=== PATIENT | male | born 1980 | race Caucasian/White ===

== ENCOUNTER → 2017-07-26 | Outpatient (CLI) | payer OTHER ==
[2017-07-26 13:17] LABS: HCT 50.1 % (39.0-53.0); HGB 16.7 gm/dL (13.0-17.5); MCH 28.2 pg (25.0-35.0); MCHC 33.2 g/dL (31.0-37.0); MCV 84.8 fL (80.0-100.0); Mean Platelet Volume 6.9; Platelet Count 348 k/uL (150-450); RBC 5.91 m/uL (4.30-5.90); RDW 12.4 % (11.5-15.5); WBC 11.4 k/uL (3.8-10.6)
[2017-07-26 14:44] LABS: Eosinophils # (M) 2.51 k/uL (0-0.7); Lymphocytes # (M) 4.22 k/uL (1.0-4.8); Monocytes # (M) 0.23 k/uL (0-1.0); Neutrophils # (M) 4.45 k/uL (1.3-7.7); Neutrophils % (M) 39 %; Nucleated Red Blood Cells 0 /100 WBC (0-0); Total Cells Counted 100
== END | disposition home or self-care (01) ==
LOC: LABPAT 11:53
PROVIDERS: ATTEND Surgery
DX: Z01.812 Encounter for preprocedural laboratory examination (principal); D64.9 Anemia, unspecified; F17.200 Nicotine dependence, unspecified, uncomplicated; K43.0 Incisional hernia with obstruction, without gangrene
CPT/HCPCS: 36415; 85025

== ENCOUNTER 2017-09-25 17:55 | Emergency (ER) | payer OTHER ==
[2017-09-25 18:21] VITALS: BP 112/76; PULSE 64; RESP 15; TEMP 98.5
[2017-09-25] MEDS ORDERED: DIPH,PERTUS(ACELL)TETVAC-LF 0.5 ML VIAL IM ONE (18:43)
--- NOTE | 2017-09-25 18:48 | ED ---
Wound/Laceration HPI - General Chief Complaint: Wound/Laceration Stated Complaint: Hand Laceration Time Seen by Provider: 09/25/17 18:40 Source: patient, RN notes reviewed, old records reviewed Mode of arrival: ambulatory Limitations: no limitations - History of Present Illness Initial Comments: This Patient is a 37-year-old male presents emergency Department with right hand laceration. He reports that he was running and fell and his hand went into the TV. Patient reports that he has a laceration over the second and third metacarpals as well as pain over his right thumb in the nailbed. He reports that he has pain with range of motion of the fingers. Patient is concerned that he may lacerated the tendon of the second digit. - Related Data Home Medications Medication Instructions Recorded Confirmed Albuterol Inhaler [Ventolin Hfa 1 - 2 puff INHALATION Q6HR PRN 07/23/17 07/28/17 Inhaler] Beclomethasone Dipropionate [Qvar 1 puff INHALATION BID 07/23/17 07/28/17 80 mcg] Dextroamphetamine/Amphetamine 20 mg PO BID 07/23/17 07/28/17 [Adderall] Previous Rx's Medication Instructions Recorded Docusate [Colace] 100 mg PO BID #20 capsule 07/28/17 HYDROcodone/APAP 7.5-325MG [[place] 1 each PO Q4H PRN #30 tab 07/28/17 7.5] Ibuprofen [Motrin] 600 mg PO Q8HR PRN #20 tab 09/25/17 Allergies Allergy/AdvReac Type Severity Reaction Status Date / Time No Known Allergies Allergy Verified 09/25/17 18:21 Review of Systems ROS Statement: Those systems with pertinent positive or pertinent negative responses have been documented in the HPI. ROS Other: All systems not noted in ROS Statement are negative. Past Medical History Past Medical History: Asthma History of Any Multi-Drug Resistant Organisms: None Reported Past Surgical History: Hernia Repair, Orthopedic Surgery Additional Past Surgical History / Comment(s): dental implants, hand surg. Past Anesthesia/Blood Transfusion Reactions: No Reported Reaction Past Psychological History: ADD/ADHD Smoking Status: Former smoker Past Alcohol Use History: Occasional Past Drug Use History: None Reported - Past Family History Mother Family Medical History: Cancer Father Family Medical History: Cancer General Exam - General Exam Comments Initial Comments: Well appearing 37 year old male, no distress. Limitations: no limitations General appearance: alert, in no apparent distress Head exam: Present: atraumatic, normocephalic, normal inspection Eye exam: Present: normal appearance, PERRL, EOMI. Absent: scleral icterus, conjunctival injection, periorbital swelling ENT exam: Present: normal exam, mucous membranes moist Neck exam: Present: normal inspection. Absent: tenderness, meningismus, lymphadenopathy Cardiovascular Exam: Present: regular rate, normal rhythm, normal heart sounds. Absent: systolic murmur, diastolic murmur, rubs, gallop, clicks Left Forearm Wrist exam: Present: normal inspection, full ROM Hand Wrist exam: Present: laceration (3 cm laceartion over dorsum of hand over 3 -5 metacarpal). Absent: normal inspection Neuro motor exam: Present: wrist extension intact, thumb opposition intact, thumb IP flexion intact, thumb adduction intact, fingers 2-5 abduction intact Vascular: Present: normal capillary refill Neurological exam: Present: alert, oriented X3, CN II-XII intact Psychiatric exam: Present: normal affect, normal mood Course Vital Signs 09/25/17 18:18 Temperature 98.5 F Pulse Rate 64 Respiratory 15 Rate Blood Pressure 112/76 O2 Sat by Pulse 99 Oximetry Procedures - Laceration Laceration #1 Site: hand (Left) Size (cm): 3 Description: linear Anesthetic Used: lidocaine 1% Anesthesia Technique: local infiltration Amount (mls): 6 Pre-repair: wound explored, irrigated extensively Type of Sutures: vicryl Size of Sutures: 5-0 Number of Sutures: 7 Technique: simple, interrupted Patient Tolerated Procedure: well, no complications Medical Decision Making - Medical Decision Making Patient is a 37 year old male with left hand laceration sent in from [facility] for further evaulation. No evidence of tendon involvment and patient has ROM of fingers. Xray shows no fracture. Wound irrigated and well approximated with sutures. Dsicussed return parameters. Patient wrapped in sterile gauze. Given information for hand specialist for follow up. - Radiology Data Radiology results: report reviewed No acute fracture dislocation symptoms persist follow-up in 7-10 days would be suggested. Disposition Clinical Impression: Hand laceration, Hand contusion Disposition: HOME SELF-CARE Condition: Good Instructions: Laceration (ED) Additional Instructions: Please return to the emergency room in 8-10 days to have sutures removed. Please leave wound covered for the first 24-48 hours and then leave open to air after that time. Please use clean soap and water to clean the suture area to prevent scabbing over the top of your sutures. Please watch for any signs of infection which may include but not limited to increased pain, swelling, redness , fever or chills. Please return to the emergency room if any signs of infection do occur. Please return to the emergency room for any other concerns or complications. Patient follow-up with Dr. Otilio Hernandez if concern for further evaluation within 1 weeks after swelling diminishes. Prescriptions: Ibuprofen [Motrin] 600 mg PO Q8HR PRN #20 tab PRN Reason: Pain Is patient prescribed a controlled substance at d/c from ED?: No When asked, does pt state using other controlled substances?: No If prescribed controlled substance>3 days was MAPS reviewed?: No If opioid is for acute pain is fill amount 7 days or less?: No If Rx opioid, was Start Talking consent form obtained?: No Referrals: Aubrey Stuart MD [Primary Care Provider] - 1-2 days Time of Disposition: 19:30
--- NOTE | 2017-09-25 18:53 | XR ---
EXAMINATION TYPE: XR hand complete RT DATE OF EXAM: 09/25/2017 COMPARISON: 07/29/2012 HISTORY: Pain TECHNIQUE: 4 views are submitted. FINDINGS: The osseous structures are intact. The joint spaces are preserved and there is no acute fracture or dislocation. Chronic deformity of the fifth metacarpal is stable from the prior exam. IMPRESSION: 1. No definite acute fracture or dislocation if symptoms persist, follow-up study in 7 to 10 days wo uld be suggested
[2017-09-25] MEDS ORDERED: LIDOCAINE 1% INJ 10MG/ML (20 ML MDV) SQ ONE (19:00)
[2017-09-25] MEDS ORDERED: LIDOCAINE 1% INJ 10MG/ML (20 ML MDV) SQ STA (19:00)
== END 2017-09-25 19:51 | disposition home or self-care (01) ==
LOC: EC 17:55
DX: S61.411A Laceration without foreign body of right hand, initial encounter (principal); J45.909 Unspecified asthma, uncomplicated; F90.9 Attention-deficit hyperactivity disorder, unspecified type; Z87.891 Personal history of nicotine dependence; Z79.51 Long term (current) use of inhaled steroids; Z79.899 Other long term (current) drug therapy; Z53.20 Procedure and treatment not carried out because of patient's decision for unspecified reasons; Z53.8 Procedure and treatment not carried out for other reasons; W01.198A Fall on same level from slipping, tripping and stumbling with subsequent striking against other object, initial encounter; Y93.02 Activity, running; Y92.009 Unspecified place in unspecified non-institutional (private) residence as the place of occurrence of the external cause
CPT/HCPCS: 99283; 12002; 73130; J2001

== ENCOUNTER 2017-12-09 21:22 | Emergency (ER) | payer OTHER ==
[2017-12-09 22:10] VITALS: BP 118/82; PULSE 94; RESP 18; TEMP 98.3
--- NOTE | 2017-12-09 22:40 | ED ---
Skin/Abscess/FB HPI - General Chief complaint: Skin/Abscess/Foreign Body Stated complaint: rash Time Seen by Provider: 12/09/17 22:22 Source: patient, RN notes reviewed Mode of arrival: ambulatory Limitations: no limitations - History of Present Illness Initial comments: This is a 37-year-old male who presents to the emergency department with chief complaint of rash. Patient believes he is infested with mites. Reports that his cat recently had mites and fleas but has since been put down. He states he was treated the home and his other cat. He states he has been using hydrocortisone cream as prescribed by primary care provider.. Denies recent fevers or chills, chest pain shortness breath, abdominal pain, nausea or vomiting. - Related Data Home Medications Medication Instructions Recorded Confirmed Albuterol Inhaler [Ventolin Hfa 1 - 2 puff INHALATION Q6HR PRN 07/23/17 07/28/17 Inhaler] Beclomethasone Dipropionate [Qvar 1 puff INHALATION BID 07/23/17 07/28/17 80 mcg] Dextroamphetamine/Amphetamine 20 mg PO BID 07/23/17 07/28/17 [Adderall] Previous Rx's Medication Instructions Recorded Docusate [Colace] 100 mg PO BID #20 capsule 07/28/17 HYDROcodone/APAP 7.5-325MG [[place] 1 each PO Q4H PRN #30 tab 07/28/17 7.5] Ibuprofen [Motrin] 600 mg PO Q8HR PRN #20 tab 09/25/17 Allergies Allergy/AdvReac Type Severity Reaction Status Date / Time No Known Allergies Allergy Verified 12/09/17 22:10 Review of Systems ROS Statement: Those systems with pertinent positive or pertinent negative responses have been documented in the HPI. ROS Other: All systems not noted in ROS Statement are negative. Past Medical History Past Medical History: Asthma History of Any Multi-Drug Resistant Organisms: None Reported Past Surgical History: Hernia Repair, Orthopedic Surgery Additional Past Surgical History / Comment(s): dental implants, hand surg. Past Anesthesia/Blood Transfusion Reactions: No Reported Reaction Past Psychological History: ADD/ADHD Smoking Status: Former smoker Past Alcohol Use History: Occasional Past Drug Use History: None Reported - Past Family History Mother Family Medical History: Cancer Father Family Medical History: Cancer General Exam - General Exam Comments Initial Comments: General: Awake and alert, well-developed; in no apparent distress. HEENT: Head atraumatic, normocephalic. Pupils are equal, round and reactive to light. Extraocular movements intact. Oropharynx moist without erythema or exudate. Neck: Supple. Normal ROM. Cardiovascular: Regular rate and rhythm. No murmurs, rubs or gallops. Chest symmetrical. Respiratory: Lungs clear to auscultation bilaterally. No wheezes, rales or rhonchi. Normal respiratory effort with no use of accessory muscles. Musculoskeletal: Normal ROM, no tenderness bilateral upper and lower extremities. Ambulating normally. Skin: Warm and dry. No rashes are identified. No signs of any bugs. Neurological: Alert and oriented x3. CN II-XII grossly intact. Speech is fluent and answers are appropriate. No focal neuro deficits. Psychiatric: Anxious and hyperverbal. Limitations: no limitations Course Vital Signs 12/09/17 22:08 Temperature 98.3 F Pulse Rate 94 Respiratory 18 Rate Blood Pressure 118/82 O2 Sat by Pulse 98 Oximetry Medical Decision Making - Medical Decision Making This is a 37-year-old male who presents to the emergency department with chief complaint of rash. Patient believes his skin is being burrowed by mites. He states his cat was recently diagnosed with mites and fleas. He is accompanied by his girlfriend who reports the same symptoms. He reports treating the cat and home. Educated patient about mites and recommended continuing hydrocortisone cream for itching. Patient's vital signs are stable and he is in no acute distress. He will be discharged home at this time. He is in agreement with plan and voices understanding. All questions were answered. Disposition Clinical Impression: Dermatitis Disposition: HOME SELF-CARE Condition: Good Instructions: Dermatitis (ED) Additional Instructions: Please follow up with primary care provider within 1-2 days. Return to emergency department if symptoms should worsen or any concerns arise. Is patient prescribed a controlled substance at d/c from ED?: No Referrals: None,Stated [Primary Care Provider] - 1-2 days Time of Disposition: 22:39
== END 2017-12-09 22:40 | disposition home or self-care (01) ==
LOC: EC 21:22
DX: L30.9 Dermatitis, unspecified (principal); J45.909 Unspecified asthma, uncomplicated; F90.9 Attention-deficit hyperactivity disorder, unspecified type; Z87.891 Personal history of nicotine dependence; Z79.51 Long term (current) use of inhaled steroids; Z79.899 Other long term (current) drug therapy
CPT/HCPCS: 99282

== ENCOUNTER → 2023-10-12 | Outpatient (CLI) | payer OTHER ==
--- NOTE | 2023-10-12 17:55 | MR ---
EXAMINATION TYPE: MR cervical spine wo con DATE OF EXAM: 10/12/2023 COMPARISON: None HISTORY: 43-year-old male Neck pain, right arm numbness. TECHNIQUE: Multiplanar, multisequence images of the cervical spine were acquired without contrast. FINDINGS: No craniocervical junction abnormality, predental space widening, or prevertebral soft tissue swellin g. Mild degenerative disc disease throughout with intervertebral disc desiccation. More moderate at C5-C 6 and C6-C7 with narrowed, desiccated, and posterior bulging discs. There is some associated edematou s Modic type I endplate change anteriorly towards the left at C5-C6. This results in mild spinal canal stenosis at both of these levels with AP canal dimension narrowing down to 9 mm. Abutment of the ventral cord at C5-C6. No cord compression. Normal cord signal. Scattered mild facet arthropathy. Alignment is maintained. Straightening of the normal cervical lordo sis could be positional or due to muscle spasm. At C4-C5, mild facet and uncovertebral joint arthropathy contributes to mild right neural foraminal s tenosis. At C5-C6, lobulated disc osteophyte complexes with uncovertebral joint arthropathy contiguous to mode rate bilateral neuroforaminal stenosis. At C6-C7, eccentric rightward disc osteophyte complex along with uncovertebral joint arthropathy cont ributes to moderate to severe right and mild left neuroforaminal stenosis. No prevertebral paravertebral soft tissue amount is seen. No suspicious bone marrow replacement. IMPRESSION: 1. Moderate degenerative disc disease C5-C6 and C6-C7. Disc osteophyte complexes here cause mild spin al canal stenoses with abutment of the ventral cord but no cord compression. 2. Additional uncovertebral joint arthropathy and mild facet arthropathy. No malalignment. 3. Changes result in moderate bilateral neuroforaminal stenosis at C5-C6 and moderate to severe on th e right at C6-C7.
== END | disposition home or self-care (01) ==
LOC: RADMRIMAIN 12:53
PROVIDERS: ATTEND Family Medicine
DX: M47.812 Spondylosis without myelopathy or radiculopathy, cervical region (principal); M50.320 Other cervical disc degeneration, mid-cervical region, unspecified level; M99.71 Connective tissue and disc stenosis of intervertebral foramina of cervical region; M25.78 Osteophyte, vertebrae
CPT/HCPCS: 72141

== ENCOUNTER 2023-11-22 05:04 | Emergency (ER) | payer OTHER ==
[2023-11-22 05:25] VITALS: RESP 18; TEMP 97.8
--- NOTE | 2023-11-22 05:40 | ED ---
Eye Problem HPI - General Source: patient Mode of arrival: ambulatory Limitations: no limitations <Keysha Paz - Last Filed: 11/22/23 05:40> - General Source: patient, RN notes reviewed Mode of arrival: ambulatory Limitations: no limitations <Gamaliel Vuong - Last Filed: 12/13/23 07:25> - General Chief complaint: Eye Problems Stated complaint: R Eye Irritation Time Seen by Provider: 11/22/23 05:20 - History of Present Illness Initial comments: 43-year-old male presents to the emergency department complaint of eye irritation. Patient states that he slept with contact and feels like symptoms in his eye. Patient had no visual [place]/tearing, redness. Patient offers no other complaints his tetanus is up-to-date. (Gamaliel Vuong) - Related Data Home Medications Medication Instructions Recorded Confirmed Albuterol Inhaler [Ventolin Hfa 1 - 2 puff INHALATION Q6HR PRN 07/23/17 07/28/17 Inhaler] Beclomethasone Dipropionate [Qvar 1 puff INHALATION BID 07/23/17 07/28/17 80 mcg] Dextroamphetamine/Amphetamine 20 mg PO BID 07/23/17 07/28/17 [Adderall] Previous Rx's Medication Instructions Recorded Docusate [Colace] 100 mg PO BID #20 capsule 07/28/17 HYDROcodone/APAP 7.5-325MG [[place] 1 each PO Q4H PRN #30 tab 07/28/17 7.5] Ibuprofen [Motrin] 600 mg PO Q8HR PRN #20 tab 09/25/17 Allergies Allergy/AdvReac Type Severity Reaction Status Date / Time No Known Allergies Allergy Verified 12/09/17 22:10 Review of Systems ROS Other: All systems not noted in ROS Statement are negative. <Keysha Paz - Last Filed: 11/22/23 05:40> ROS Other: All systems not noted in ROS Statement are negative. <Gamaliel Vuong - Last Filed: 12/13/23 07:25> ROS Statement: Those systems with pertinent positive or pertinent negative responses have been documented in the HPI. Past Medical History Past Medical History: Asthma History of Any Multi-Drug Resistant Organisms: None Reported Past Surgical History: Hernia Repair, Orthopedic Surgery Additional Past Surgical History / Comment(s): dental implants, hand surg. Past Anesthesia/Blood Transfusion Reactions: No Reported Reaction Past Psychological History: ADD/ADHD Smoking Status: Current every day smoker, Vaper Past Alcohol Use History: Occasional Past Drug Use History: None Reported - Past Family History Mother Family Medical History: Cancer Father Family Medical History: Cancer <Keysha Paz P - Last Filed: 11/22/23 05:40> General Exam Limitations: no limitations <Keysha Paz P - Last Filed: 11/22/23 05:40> General appearance: alert, in no apparent distress Head exam: Present: atraumatic, normocephalic, normal inspection Eye exam: Present: PERRL, EOMI, conjunctival injection, other (Fluorescein uptake in the right eye circular with lucent area noted). Absent: normal appearance, scleral icterus, periorbital swelling ENT exam: Present: normal exam, mucous membranes moist Neck exam: Present: normal inspection, full ROM. Absent: tenderness, meningismus, lymphadenopathy Respiratory exam: Present: normal lung sounds bilaterally. Absent: respiratory distress, wheezes, rales, rhonchi, stridor Cardiovascular Exam: Present: regular rate, normal rhythm, normal heart sounds. Absent: systolic murmur, diastolic murmur, rubs, gallop, clicks <Gamaliel Vuong M - Last Filed: 12/13/23 07:25> Course Vital Signs 11/22/23 11/22/23 05:22 07:14 Temperature 97.8 F Pulse Rate 65 85 Respiratory 18 18 Rate Blood Pressure 124/84 128/86 O2 Sat by Pulse 99 97 Oximetry Medical Decision Making <Gamaliel Vuong - Last Filed: 12/13/23 07:25> - Medical Decision Making Was pt. sent in by a medical professional or institution (, PA, AUTO CLOCKS REPAIRER, urgent care, hospital, or senior care...) When possible be specific @ -No Did you speak to anyone other than the patient for history (EMS, parent, family, police, friend...)? What history was obtained from this source @ -No Did you review nursing and triage notes (agree or disagree)? Why? @ -I reviewed and agree with nursing and triage notes Were old charts reviewed (outside hosp., previous admission, EMS record, old EKG, old radiological studies, urgent care reports/EKG's, senior care records)? Report findings @ -No old charts were reviewed Differential Diagnosis (chest pain, altered mental status, abdominal pain women, abdominal pain men, vaginal bleeding, weakness, fever, dyspnea, syncope, headache, dizziness, GI bleed, back pain, seizure, CVA, palpatations, mental health, musculoskeletal)? @ -Corneal abrasion, corneal foreign body, corneal ulcer EKG interpreted by me (3pts min.). @ -None X-rays interpreted by me (1pt min.). @ -None done CT interpreted by me (1pt min.). @ -None done U/S interpreted by me (1pt. min.). @ -None done What testing was considered but not performed or refused? (CT, X-rays, U/S, labs)? Why? @ -None What meds were considered but not given or refused? Why? @ -None Did you discuss the management of the patient with other professionals (professionals i.e. , PA, AUTO CLOCKS REPAIRER, lab, RT, psych nurse, social services, thermal spray operator, teacher, escrow officer, case coordinator)? Give summary @ -No Was smoking cessation discussed for >3mins.? @ -No Was critical care preformed (if so, how long)? @ -No Were there social determinants of health that impacted care today? How? (Homelessness, low income, unemployed, alcoholism, drug addiction, transportation, low edu. Level, literacy, decrease access to med. care, penitentiary, rehab)? @ -No Was there de-escalation of care discussed even if they declined (Discuss DNR or withdrawal of care, Hospice)? DNR status @ -No What co-morbidities impacted this encounter? (DM, HTN, Smoking, COPD, CAD, Cancer, CVA, ARF, Chemo, Hep., AIDS, mental health diagnosis, sleep apnea, morbid obesity)? @ -None Was patient admitted / discharged? Hospital course, mention meds given and route, prescriptions, significant lab abnormalities, going to OR and other pertinent info. @ -Discharge patient has a corneal ulcer started on Vigamox 1 drop every 2 hours, x 24 hours and then 1 drop every 4 hours follow-up with ophthalmology tomorrow Undiagnosed new problem with uncertain prognosis? @ -No Drug Therapy requiring intensive monitoring for toxicity (Heparin, Nitro, Insulin, Cardizem)? @ -No Were any procedures done? @ -No Diagnosis/symptom? @ -Corneal ulcer Acute, or Chronic, or Acute on Chronic? @ -Acute Uncomplicated (without systemic symptoms) or Complicated (systemic symptoms)? @ -Uncomplicated Side effects of treatment? @ -No Exacerbation, Progression, or Severe Exacerbation? @ -No Poses a threat to life or bodily function? How? (Chest pain, [place], [place], pneumonia, PE, COPD, DKA, ARF, appy, cholecystitis, CVA, Diverticulitis, Homicidal, Suicidal, threat to staff... and all critical care pts) @ -No (Gamaliel Vuong) Disposition <Keysha Paz - Last Filed: 11/22/23 05:40> Is patient prescribed a controlled substance at d/c from ED?: No Time of Disposition: 06:36 <Gamaliel Vuong - Last Filed: 12/13/23 07:25> Clinical Impression: Corneal abrasion, right Disposition: HOME SELF-CARE Condition: Stable Instructions (If sedation given, give patient instructions): Corneal Abrasion (ED) Additional Instructions: Tobrex eyedrops 1 drop every hour today and then every 4 hours for 5 days. Follow-up with ophthalmology in the next 24 to 48 hours. Please return to the Emergency Department if symptoms worsen or any other concerns. Referrals: Aubrey Stuart MD [Primary Care Provider] - 1-2 days Sheldon Bedolla MD [STAFF PHYSICIAN] - 1-2 days
[2023-11-22] MEDS: FLUORESCEIN STRIPS 1 MG STRIP LEFT EYE ONE (05:44)
[2023-11-22] MEDS: PROPARACAINE 0.5% OPHTH DROPS 15 ML BTL LEFT EYE STA (05:45)
[2023-11-22] MEDS: TOBRAMYCIN 0.3% OPHTH DROPS 5 ML BTL RIGHT EYE STA (06:42)
[2023-11-22 07:16] VITALS: BP 128/86; PULSE 85
== END 2023-12-11 12:34 | disposition home or self-care (01) ==
LOC: EC 05:04
DX: S05.01XA Injury of conjunctiva and corneal abrasion without foreign body, right eye, initial encounter (principal); F17.290 Nicotine dependence, other tobacco product, uncomplicated; X58.XXXA Exposure to other specified factors, initial encounter
CPT/HCPCS: 99283

== ENCOUNTER 2024-01-02 15:12 | Emergency (ER) | payer OTHER ==
[2024-01-02 15:27] VITALS: TEMP 99.1
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
[2024-01-02 16:25] LABS: Basophils % (A) 0 %; Eosinophils # (A) 0.5 k/uL (0-0.7); Eosinophils % (A) 4 %; HCT 49.6 % (39.0-53.0); HGB 16.1 gm/dL (13.0-17.5); Lymphocytes # (A) 0.8 k/uL (1.0-4.8); Lymphocytes % (A) 7 %; MCH 28.7 pg (25.0-35.0); MCHC 32.4 g/dL (31.0-37.0); MCV 88.7 fL (80.0-100.0); Mean Platelet Volume 6.6; Monocytes # (A) 0.4 k/uL (0-1.0); Monocytes % (A) 3 %; Neutrophils # (A) 9.2 k/uL (1.3-7.7); Neutrophils % (A) 84 %; Platelet Count 350 k/uL (150-450); RBC 5.59 m/uL (4.30-5.90); RDW 11.4 % (11.5-15.5); WBC 10.9 k/uL (3.8-10.6)
[2024-01-02 16:40] LABS: ALT 28 U/L (4-49); African American GFR (CKD) 86 (>60 ml/min/1.73 sqM); Albumin 4.5 g/dL (3.5-5.0); Alcohol <10 mg/dL; Anion Gap 10 mmol/L; Blood Urea Nitrogen 12 mg/dL (9-20); Calcium 9.4 mg/dL (8.4-10.2); Carbon Dioxide 24 mmol/L (22-30); Chloride 106 mmol/L (98-107); Glucose 117 mg/dL (74-99); Non-African American GFR(CKD) 75 (>60 ml/min/1.73 sqM); Sodium 140 mmol/L (137-145); Total Bilirubin 0.8 mg/dL (0.2-1.3); Total Protein 6.9 g/dL (6.3-8.2)
[2024-01-02 16:58] LABS: AST 42 U/L (17-59); Alkaline Phosphatase 75 U/L (38-126); Potassium 4.4 mmol/L (3.5-5.1)
--- NOTE | 2024-01-02 17:16 | CT ---
EXAMINATION TYPE: CT brain wo con CT DLP: 1164.4 mGycm, Automated exposure control for dose reduction was used. DATE OF EXAM: 01/02/2024 5:02 PM COMPARISON: None. CLINICAL INDICATION: Male, 43 years old with history of altered mental status, found unresponsive had seizure TECHNIQUE: Brain: Axial CT images of the brain were obtained with coronal and sagittal reformats created and rev iewed. Contrast used: None. Oral contrast used: None. FINDINGS: Brain: Extra-axial spaces: No abnormal extra-axial fluid collections. Ventricular system: Within normal limits Cerebral parenchyma: No acute intraparenchymal hemorrhage or mass effect. The abel-white junction is well differentiated. Cerebellum: Unremarkable. Mass effect: No evidence of midline shift. Intracranial vasculature: unremarkable Soft tissues: Normal. Calvarium/osseous structures: No depressed skull fracture. Paranasal sinuses and mastoid air cells: Mild scattered paranasal sinus disease. Visualized orbits: Orbital contents are intact. IMPRESSION: No acute intracranial process. [facility], , 01/02/2024 5:13 PM
[2024-01-02 17:43] VITALS: BP 120/68; PULSE 68; RESP 20
== END 2024-01-02 17:42 | disposition home or self-care (01) ==
LOC: EC 15:12
CPT/HCPCS: 36415; 70450; 80053; 80320; 83605; 85025; 93005; 99285